=== PATIENT | female | born 1980 | race African-American/Black ===

== ENCOUNTER 2019-03-27 17:31 | Emergency (ER) | payer SELFPAY ==
[~2019-03-27] VITALS: Ht 160 cm; Wt 83.0 kg
[2019-03-27 17:39] VITALS: BP 141/95
== END 2019-03-27 23:00 | disposition left against medical advice (07) ==
LOC: ER 17:31
DX: Z53.21 Procedure and treatment not carried out due to patient leaving prior to being seen by health care provider (principal)